=== PATIENT | female | born 1990 | race African-American/Black ===

== ENCOUNTER 2022-10-14 09:06 | Emergency (ER) | payer MEDICAID ==
[~2022-10-14] VITALS: Ht 160 cm; Wt 46.0 kg
[2022-10-14] MEDS ORDERED: HYDROCODONE/ACETAMINOPHEN 5/325MG TABLET PO ONE (11:30)
[2022-10-14] MEDS ORDERED: CLIN-194 MT (11:34)
[2022-10-14] MEDS ORDERED: HYDR-4001 MT ×2 (11:34→11:35)
[2022-10-14 11:40] VITALS: BP 130/87
== END 2022-10-14 11:45 | disposition home or self-care (01) ==
LOC: ER 09:14
DX: K08.89 Other specified disorders of teeth and supporting structures (principal); Z90.49 Acquired absence of other specified parts of digestive tract; Z88.0 Allergy status to penicillin
CPT/HCPCS: 81025; 99283